=== PATIENT | male | born 1940 | race Caucasian/White ===

== ENCOUNTER 2020-06-15 10:12 | Outpatient (CLI) | payer MEDICARE ==
--- NOTE | 2020-06-15 10:40 | RAD ---
EXAM: Chest 2 views: HISTORY: Chronic cough COMPARISON: None. FINDINGS: There is a normal-sized cardiomediastinal silhouette. Atherosclerotic calcifications are seen in the aorta. There is no evidence of consolidation, mass, or pleural effusion. Degenerative changes are seen in the spine. IMPRESSION: No evidence of acute cardiopulmonary disease
== END 2020-06-15 10:13 | disposition home or self-care (01) ==
LOC: RAD 10:12
PROVIDERS: ATTEND Family Medicine
DX: R05 Cough (principal)
CPT/HCPCS: 71046; 80061; 81001; G0103; 36415; 80053; 84443; 85025

== ENCOUNTER 2024-04-10 11:15 | Outpatient (CLI) | payer MEDICARE | END 2024-04-10 11:16 | disposition home or self-care (01) | LOC: BICRAD 11:15 | PROVIDERS: ATTEND Family Medicine | DX: Z00.00 Encounter for general adult medical examination without abnormal findings (principal); Z13.1 Encounter for screening for diabetes mellitus; Z12.5 Encounter for screening for malignant neoplasm of prostate; Z13.29 Encounter for screening for other suspected endocrine disorder; C44.91 Basal cell carcinoma of skin, unspecified; M89.8X8 Other specified disorders of bone, other site; E78.5 Hyperlipidemia, unspecified; I10 Essential (primary) hypertension | CPT/HCPCS: 36415; 71046; 80053; 80061; 81001; 84443; 85025; G0103 ==